=== PATIENT | female | born 1995 | race Caucasian/White ===

== ENCOUNTER → 2019-03-16 | Outpatient (CLI) | payer OTHER | LOC: FB.CLBR 12:23 | PROVIDERS: ATTEND Nurse Practitioner Family | DX: J02.9 Acute pharyngitis, unspecified (principal) | CPT/HCPCS: 87880-QW ==

== ENCOUNTER 2022-02-01 11:39 | Emergency (ER) | payer BC ==
[2022-02-01] MEDS ORDERED: Ondansetron 4 MG Tab.DIS PO ONE (12:18)
[2022-02-01] MEDS ORDERED: Acetaminophen 500 MG Tab PO ONE (12:30)
[2022-02-01 12:39] LABS: ESTIMATED GFR 89 mL/min (>60)
[2022-02-01] MEDS ORDERED: cefTRIAXone 1 GM Vial IM ONE (13:53)
[2022-02-01] MEDS ORDERED: Ketorolac 30 MG/ML SDV IM ONE (13:59)
== END 2022-02-01 14:22 | disposition home or self-care (01) ==
LOC: FB.ED 11:39
DX: N12 Tubulo-interstitial nephritis, not specified as acute or chronic (principal)
CPT/HCPCS: 36415; 80053; 81001; 85025; 96372; 99284; A9270; J0696; J1885; Q0162